=== PATIENT | male | born 1945 | race Caucasian/White ===

== ENCOUNTER 2021-12-10 18:33 | Inpatient (IN) | payer BC, MEDICARE, OTHER ==
[~2021-12-10] VITALS: Ht 180.3 cm; Wt 97.4 kg
[2021-12-10 19:21] LABS: BASOPHILS % (AUTO) 0.4 % (0.0-5.0); EOSINOPHILS % (AUTO) 0.4 % (0.0-8.0); HEMATOCRIT 37.3 % (42-54); MEAN CORPUSCULAR HEMOGLOBIN 29.3 pg (27.0-33.0); MEAN CORPUSCULAR HGB CONC 33.8 g/dL (32.0-36.0); MEAN CORPUSCULAR VOLUME 86.7 fL (79-99); MONOCYTES % (AUTO) 10.5 % (3.0-13.0); NEUTROPHILS % (AUTO) 72.3 % (40.0-77.0); PLATELET COUNT (AUTO) 282 K/uL (130-400); RED CELL DISTRIBUTION WIDTH 12.3 % (11.0-15.5); WHITE BLOOD COUNT (AUTO) 11.3 K/uL (4.8-10.8)
[2021-12-10] MEDS ORDERED: 0.9%NACL 1000ML 1,000 ML IV ONE (19:30)
[2021-12-10] MEDS ORDERED: ACETAMINOPHEN 500 MG TABLET PO ONE (19:30)
[2021-12-10] MEDS ORDERED: VANCOMYCIN 1G VIAL IVPB ONE (19:30)
[2021-12-10 19:45] LABS: INR 1.12 (0.85-1.15); PROTHROMBIN TIME 12.1 SEC (9.6-11.6)
[2021-12-10] MEDS ORDERED: VANCOMYCIN 750MG VIAL ONE (19:45)
[2021-12-10 19:47] LABS: PARTIAL THROMBOPLASTIN TIME 30.5 SEC (26.3-35.5)
[2021-12-10 19:49] LABS: CREATININE 1.5 mg/dL (0.5-1.5); POTASSIUM 5.1 mmol/L (3.5-5.1)
[2021-12-10 20:03] LABS: ALBUMIN 3.5 g/dL (3.5-5.0)
[2021-12-10] MEDS: ZOSYN 3.375GM +NS 50ML IV SCH (20:09)
[2021-12-10 20:15] LABS: APPEARANCE,URINE CLEAR (CLEAR); BILIRUBIN,URINE NEGATIVE (NEGATIVE); COLOR,URINE YELLOW (YELLOW); GLUCOSE, URINE (UA) NEGATIVE (NEGATIVE); KETONES,URINE 5 mg/dL (NEGATIVE); LEUKOCYTE ESTERASE ,URINE NEGATIVE (NEGATIVE); NITRATE,URINE NEGATIVE (NEGATIVE); OCCULT BLOOD,URINE NEGATIVE (NEGATIVE); PH,URINE 5.5 (5.0-8.0); PROTEIN,URINE NEGATIVE (NEGATIVE); UROBILINOGEN,URINE 0.2 mg/dL (0.2-1.0)
[2021-12-10] MEDS ORDERED: ONDANSETRON 4MG INJ IV PRN (21:00)
[2021-12-10] MEDS ORDERED: LACTULOSE 20 GM/30 ML UDCUP PO PRN (21:00)
[2021-12-10] MEDS ORDERED: COMPOUND IV REFRIGERATED 1 EACH IVSOLN MISC PRN (21:00)
[2021-12-10] MEDS ORDERED: ACETAMINOPHEN 325 MG TAB PO PRN ×2 (21:00)
[2021-12-10] MEDS ORDERED: VANCOMYCIN PROTOCOL PER PHARMACY IV PRN (21:00)
[2021-12-10] MEDS: INSULIN HUMULIN R 100 UNIT/ML 3ML SQ SCH (21:00)
[2021-12-10] MEDS: 0.9%NACL 1000ML 1,000 ML IV SCH (23:24)
[2021-12-10] MEDS: CEFEPIME HCL 2 GM VIAL IVP SCH (23:24)
[2021-12-11 01:00] VITALS: BP 136/45
[2021-12-11 04:45] VITALS: BP 128/56
[2021-12-11] MEDS: CEFEPIME HCL 2 GM VIAL IVP SCH ×3 (04:53→22:42)
[2021-12-11 05:43] LABS: BASOPHILS % (AUTO) 0.3 % (0.0-5.0); EOSINOPHILS % (AUTO) 1.3 % (0.0-8.0); HEMATOCRIT 35.2 % (42-54); LYMPHOCYTES % (AUTO) 22.2 % (21.0-51.0); MEAN CORPUSCULAR HEMOGLOBIN 29.4 pg (27.0-33.0); MEAN CORPUSCULAR VOLUME 89.1 fL (79-99); MONOCYTES % (AUTO) 11.9 % (3.0-13.0); PLATELET COUNT (AUTO) 233 K/uL (130-400); RED BLOOD CELL COUNT(AUTO) 3.95 MIL/uL (4.50-6.20); RED CELL DISTRIBUTION WIDTH 12.4 % (11.0-15.5); WHITE BLOOD COUNT (AUTO) 8.9 K/uL (4.8-10.8)
[2021-12-11 06:01] LABS: CREATININE 1.3 mg/dL (0.5-1.5); POTASSIUM 4.1 mmol/L (3.5-5.1); TOTAL PROTEIN, SERUM 7.2 g/dL (6.0-8.3)
[2021-12-11] MEDS: INSULIN HUMULIN R 100 UNIT/ML 3ML SQ SCH ×4 (07:03→21:00)
[2021-12-11 08:00] VITALS: BP 188/73
[2021-12-11] MEDS: FAMOTIDINE 20MG TAB PO SCH (10:21)
[2021-12-11 12:00] VITALS: BP 148/61
[2021-12-11] MEDS ORDERED: METOPROLOL TARTRATE 1 MG/ML 5ML VIAL IV PRN (12:00)
[2021-12-11] MEDS ORDERED: HYDRALAZINE HCL 10 MG TABLET PO PRN (12:00)
[2021-12-11] MEDS: 0.9%NACL 1000ML 1,000 ML IV SCH ×2 (12:54→18:25)
[2021-12-11] MEDS: VANCOMYCIN 1.25GM/NS 250ML IVPB SCH ×2 (13:00)
[2021-12-11 16:00] VITALS: BP 130/61
[2021-12-11 20:39] VITALS: BP 160/66
[2021-12-11] MEDS: ZOSYN 3.375GM +NS 50ML IV SCH (22:42)
[2021-12-12 00:11] VITALS: BP 154/61
[2021-12-12 04:24] VITALS: BP 159/69
[2021-12-12] MEDS: CEFEPIME HCL 2 GM VIAL IVP SCH ×3 (04:44→21:22)
[2021-12-12 05:06] LABS: HEMATOCRIT 31.4 % (42-54); MEAN CORPUSCULAR HEMOGLOBIN 29.1 pg (27.0-33.0); MEAN CORPUSCULAR HGB CONC 32.8 g/dL (32.0-36.0); MEAN CORPUSCULAR VOLUME 88.7 fL (79-99); RED BLOOD CELL COUNT(AUTO) 3.54 MIL/uL (4.50-6.20); RED CELL DISTRIBUTION WIDTH 12.4 % (11.0-15.5); WHITE BLOOD COUNT (AUTO) 9.4 K/uL (4.8-10.8)
[2021-12-12] MEDS: 0.9%NACL 1000ML 1,000 ML IV SCH ×3 (05:15→23:00)
[2021-12-12 05:25] LABS: CREATININE 1.1 mg/dL (0.5-1.5); POTASSIUM 4.1 mmol/L (3.5-5.1)
[2021-12-12] MEDS: INSULIN HUMULIN R 100 UNIT/ML 3ML SQ SCH ×4 (06:18→21:11)
[2021-12-12 07:00] VITALS: BP 161/58
[2021-12-12] MEDS: FAMOTIDINE 20MG TAB PO SCH (08:57)
[2021-12-12 11:00] VITALS: BP 160/62
[2021-12-12] MEDS ORDERED: ASPIRIN 81 MG EC TAB PO ONE (11:30)
[2021-12-12] MEDS: VANCOMYCIN 1.25GM/NS 250ML IVPB SCH ×2 (12:27)
[2021-12-12] MEDS ORDERED: IOHEXOL 350 MG/ML 100ML INFUS..BTL IV ONE (14:36)
[2021-12-12] MEDS ORDERED: IOHEXOL-350 50ML VIAL IV ONE (14:37)
[2021-12-12 15:00] VITALS: BP 173/66
[2021-12-12] MEDS ORDERED: CETI10TA57 PO (20:19)
[2021-12-12] MEDS ORDERED: VIT-6 PO (20:19)
[2021-12-12] MEDS ORDERED: BUPR-49 PO (20:19)
[2021-12-12] MEDS ORDERED: HYDR12.54 PO (20:19)
[2021-12-12] MEDS ORDERED: ASPI-891 PO (20:19)
[2021-12-12] MEDS ORDERED: [UNRECOGNIZED DRUG - OTHER] (20:19)
[2021-12-12] MEDS ORDERED: LISI20TA24 PO (20:19)
[2021-12-12] MEDS ORDERED: METF-446 PO (20:19)
[2021-12-12] MEDS ORDERED: NIFE30TA98 PO (20:19)
[2021-12-12] MEDS ORDERED: INSU100I24 SQ (20:19)
[2021-12-12] MEDS: ATORVASTATIN 40 MG TABLET PO SCH (21:08)
[2021-12-12] MEDS: ZOSYN 3.375GM +NS 50ML IV SCH (21:08)
[2021-12-12 21:19] VITALS: BP 184/70
[2021-12-13] VITALS (7 sets, daily range): BP systolic 121–169; BP diastolic 55–65
[2021-12-13] MEDS: CEFEPIME HCL 2 GM VIAL IVP SCH ×3 (04:57→20:39)
[2021-12-13] MEDS: 0.9%NACL 1000ML 1,000 ML IV SCH ×2 (05:32→16:52)
[2021-12-13] MEDS: INSULIN HUMULIN R 100 UNIT/ML 3ML SQ SCH ×4 (06:27→20:38)
[2021-12-13 08:21] LABS: MEAN CORPUSCULAR HEMOGLOBIN 29.1 pg (27.0-33.0); MEAN CORPUSCULAR HGB CONC 33.1 g/dL (32.0-36.0); MEAN CORPUSCULAR VOLUME 87.9 fL (79-99); RED BLOOD CELL COUNT(AUTO) 3.98 MIL/uL (4.50-6.20); RED CELL DISTRIBUTION WIDTH 12.3 % (11.0-15.5); WHITE BLOOD COUNT (AUTO) 7.7 K/uL (4.8-10.8)
[2021-12-13 08:40] LABS: CREATININE 1.1 mg/dL (0.5-1.5); POTASSIUM 4.2 mmol/L (3.5-5.1)
[2021-12-13] MEDS: CETIRIZINE HCL 5 MG TABLET PO SCH (08:52)
[2021-12-13] MEDS: LISINOPRIL 20 MG TABLET PO SCH (08:52)
[2021-12-13] MEDS: ASPIRIN 81 MG EC TAB PO SCH (08:53)
[2021-12-13] MEDS: HYDROCHLOROTHIAZIDE 25 MG TABLET PO SCH (08:53)
[2021-12-13] MEDS: FAMOTIDINE 20MG TAB PO SCH (08:53)
[2021-12-13] MEDS: PYRIDOXINE PO SCH (08:59)
[2021-12-13] MEDS: CYANOCOBALAMIN PO SCH (08:59)
[2021-12-13] MEDS: RIBOFLAVIN PO SCH (08:59)
[2021-12-13] MEDS: **HM** BUPROPION XL 150MG PO SCH (08:59)
[2021-12-13] MEDS ORDERED: NIFEDIPINE ER 30 MG TAB PO SCH (09:00)
[2021-12-13] MEDS: VANCOMYCIN 1.25GM/NS 250ML IVPB SCH ×2 (13:17)
[2021-12-13] MEDS: ZOSYN 3.375GM +NS 50ML IV SCH (20:28)
[2021-12-13] MEDS: NIFEDIPINE 10 MG CAP PO SCH (20:38)
[2021-12-13] MEDS: ATORVASTATIN 40 MG TABLET PO SCH (20:39)
[2021-12-14] MEDS: VANCOMYCIN 1.25GM/NS 250ML IVPB SCH ×4 (01:54→12:24)
[2021-12-14 03:20] VITALS: BP 154/63
[2021-12-14] MEDS: CEFEPIME HCL 2 GM VIAL IVP SCH ×3 (05:25→20:19)
[2021-12-14] MEDS: 0.9%NACL 1000ML 1,000 ML IV SCH ×2 (05:26→15:00)
[2021-12-14] MEDS: INSULIN HUMULIN R 100 UNIT/ML 3ML SQ SCH ×4 (06:11→21:00)
[2021-12-14 06:40] LABS: HEMATOCRIT 33.8 % (42-54); MEAN CORPUSCULAR HEMOGLOBIN 28.9 pg (27.0-33.0); MEAN CORPUSCULAR HGB CONC 33.1 g/dL (32.0-36.0); MEAN CORPUSCULAR VOLUME 87.3 fL (79-99); RED BLOOD CELL COUNT(AUTO) 3.87 MIL/uL (4.50-6.20); RED CELL DISTRIBUTION WIDTH 12.3 % (11.0-15.5); WHITE BLOOD COUNT (AUTO) 7.5 K/uL (4.8-10.8)
[2021-12-14 06:54] LABS: ALBUMIN 2.6 g/dL (3.5-5.0); CREATININE 1.1 mg/dL (0.5-1.5); POTASSIUM 4.3 mmol/L (3.5-5.1)
[2021-12-14 07:00] VITALS: BP 157/63
[2021-12-14] MEDS: CYANOCOBALAMIN PO SCH (09:00)
[2021-12-14] MEDS: **HM** BUPROPION XL 150MG PO SCH (09:00)
[2021-12-14] MEDS: RIBOFLAVIN PO SCH (09:00)
[2021-12-14] MEDS: PYRIDOXINE PO SCH (09:00)
[2021-12-14] MEDS: ASPIRIN 81 MG EC TAB PO SCH (10:17)
[2021-12-14] MEDS: FAMOTIDINE 20MG TAB PO SCH (10:17)
[2021-12-14] MEDS: CETIRIZINE HCL 5 MG TABLET PO SCH (10:17)
[2021-12-14] MEDS: LISINOPRIL 20 MG TABLET PO SCH (10:17)
[2021-12-14] MEDS: HYDROCHLOROTHIAZIDE 25 MG TABLET PO SCH (10:17)
[2021-12-14] MEDS: NIFEDIPINE 10 MG CAP PO SCH ×3 (10:21→20:19)
[2021-12-14 11:00] VITALS: BP 171/67
[2021-12-14 15:00] VITALS: BP 151/52
[2021-12-14 19:20] VITALS: BP 159/136
[2021-12-14] MEDS: ATORVASTATIN 40 MG TABLET PO SCH (20:19)
[2021-12-14] MEDS: ZOSYN 3.375GM +NS 50ML IV SCH (20:19)
[2021-12-14 23:33] VITALS: BP 136/49
[2021-12-15] VITALS (11 sets, daily range): BP systolic 137–187; BP diastolic 52–77
[2021-12-15] MEDS: 0.9%NACL 1000ML 1,000 ML IV SCH ×2 (01:00→21:47)
[2021-12-15] MEDS: VANCOMYCIN 1.25GM/NS 250ML IVPB SCH ×4 (01:24→13:00)
[2021-12-15 05:27] LABS: HEMATOCRIT 34.6 % (42-54); MEAN CORPUSCULAR HEMOGLOBIN 28.6 pg (27.0-33.0); MEAN CORPUSCULAR HGB CONC 33.5 g/dL (32.0-36.0); MEAN CORPUSCULAR VOLUME 85.4 fL (79-99); RED BLOOD CELL COUNT(AUTO) 4.05 MIL/uL (4.50-6.20); RED CELL DISTRIBUTION WIDTH 12.2 % (11.0-15.5); WHITE BLOOD COUNT (AUTO) 6.8 K/uL (4.8-10.8)
[2021-12-15 05:39] LABS: INR 1.24 (0.85-1.15); PROTHROMBIN TIME 13.4 SEC (9.6-11.6)
[2021-12-15 05:40] LABS: PARTIAL THROMBOPLASTIN TIME 29.1 SEC (26.3-35.5); POTASSIUM 3.6 mmol/L (3.5-5.1)
[2021-12-15] MEDS: CEFEPIME HCL 2 GM VIAL IVP SCH ×3 (05:40→21:47)
[2021-12-15] MEDS: INSULIN HUMULIN R 100 UNIT/ML 3ML SQ SCH ×4 (07:17→22:20)
[2021-12-15] MEDS: RIBOFLAVIN PO SCH (09:00)
[2021-12-15] MEDS: **HM** BUPROPION XL 150MG PO SCH (09:00)
[2021-12-15] MEDS: NIFEDIPINE 10 MG CAP PO SCH ×3 (09:00→21:49)
[2021-12-15] MEDS: HYDROCHLOROTHIAZIDE 25 MG TABLET PO SCH (09:00)
[2021-12-15] MEDS: FAMOTIDINE 20MG TAB PO SCH (09:00)
[2021-12-15] MEDS: CETIRIZINE HCL 5 MG TABLET PO SCH (09:00)
[2021-12-15] MEDS: PYRIDOXINE PO SCH (09:00)
[2021-12-15] MEDS: ASPIRIN 81 MG EC TAB PO SCH (09:00)
[2021-12-15] MEDS: LISINOPRIL 20 MG TABLET PO SCH (09:00)
[2021-12-15] MEDS: CYANOCOBALAMIN PO SCH (09:00)
[2021-12-15] MEDS ORDERED: LIDOCAINE HCL 400MG/20ML VIAL ONE (17:07)
[2021-12-15] MEDS ORDERED: NITROGLYCERIN 50MG VIAL ONE (17:07)
[2021-12-15] MEDS ORDERED: IODIXANOL 320 MG/ML 100 ML VIAL ONE (17:07)
[2021-12-15] MEDS ORDERED: HEPARIN 10,000 UNIT/10ML (1,000 UNIT/ML) VIAL ONE ×2 (17:08→19:28)
[2021-12-15] MEDS ORDERED: MIDAZOLAM HCL 1 MG/ML 2ML VIAL ONE (18:00)
[2021-12-15] MEDS ORDERED: FENTANYL CITRATE PF 50 MCG/1 ML 2ML VIAL ONE (18:00)
[2021-12-15] MEDS ORDERED: HYDRALAZINE 20MG/ML VIAL ONE ×2 (18:06→18:23)
[2021-12-15] MEDS ORDERED: NICARDIPINE 25MG INJ IV ONE (18:54)
[2021-12-15] MEDS ORDERED: ASPIRIN 325MG EC TAB PO ONE (18:56)
[2021-12-15] MEDS ORDERED: CLOPIDOGREL 300MG TAB ONE (18:56)
[2021-12-15] MEDS: ZOSYN 3.375GM +NS 50ML IV SCH (19:30)
[2021-12-15] MEDS ORDERED: LABETALOL 20MG SYG IV ONE (19:56)
[2021-12-15] MEDS ORDERED: 0.9%NACL 1000ML 1,000 ML IV SCH (20:30)
[2021-12-15] MEDS ORDERED: DEXTROSE 50%-WATER 50 ML DISP.SYRIN IV PRN (20:30)
[2021-12-15] MEDS ORDERED: GLUCAGON 1MG KIT 1 MG ML IM PRN (20:30)
[2021-12-15] MEDS: ATORVASTATIN 40 MG TABLET PO SCH (21:48)
[2021-12-16] VITALS (22 sets, daily range): BP systolic 138–184; BP diastolic 58–84
[2021-12-16] MEDS: VANCOMYCIN 1.25GM/NS 250ML IVPB SCH ×4 (00:51→14:32)
[2021-12-16] MEDS: CEFEPIME HCL 2 GM VIAL IVP SCH ×3 (04:31→23:50)
[2021-12-16 05:05] LABS: HEMATOCRIT 34.3 % (42-54); MEAN CORPUSCULAR HEMOGLOBIN 28.8 pg (27.0-33.0); MEAN CORPUSCULAR HGB CONC 33.5 g/dL (32.0-36.0); RED BLOOD CELL COUNT(AUTO) 3.99 MIL/uL (4.50-6.20); RED CELL DISTRIBUTION WIDTH 12.2 % (11.0-15.5); WHITE BLOOD COUNT (AUTO) 8.9 K/uL (4.8-10.8)
[2021-12-16 05:21] LABS: CRP QUANTITATIVE 19.8 mg/L (0.00-9.0); POTASSIUM 3.4 mmol/L (3.5-5.1)
[2021-12-16 05:38] LABS: HEMOGLOBIN A1C 9.8 % (4.0-6.0)
[2021-12-16] MEDS: INSULIN HUMULIN R 100 UNIT/ML 3ML SQ SCH ×4 (06:14→21:00)
[2021-12-16] MEDS: 0.9%NACL 1000ML 1,000 ML IV SCH ×2 (06:44→17:00)
[2021-12-16] MEDS: CETIRIZINE HCL 5 MG TABLET PO SCH (08:59)
[2021-12-16] MEDS: LISINOPRIL 20 MG TABLET PO SCH (08:59)
[2021-12-16] MEDS: **HM** BUPROPION XL 150MG PO SCH (09:00)
[2021-12-16] MEDS: RIBOFLAVIN PO SCH (09:00)
[2021-12-16] MEDS: ASPIRIN 81 MG EC TAB PO SCH (09:00)
[2021-12-16] MEDS: CLOPIDOGREL 75MG TAB PO SCH (09:00)
[2021-12-16] MEDS: CYANOCOBALAMIN PO SCH (09:00)
[2021-12-16] MEDS: PYRIDOXINE PO SCH (09:00)
[2021-12-16] MEDS: NIFEDIPINE 10 MG CAP PO SCH ×3 (09:00→23:49)
[2021-12-16] MEDS: HYDROCHLOROTHIAZIDE 25 MG TABLET PO SCH (09:00)
[2021-12-16] MEDS: FAMOTIDINE 20MG TAB PO SCH (09:00)
[2021-12-16] MEDS: ZOSYN 3.375GM +NS 50ML IV SCH (19:30)
[2021-12-16] MEDS ORDERED: BUPIVACAINE/PF 0.5% 10ML VIAL ONE (20:44)
[2021-12-16] MEDS ORDERED: PROPOFOL 10 MG/ML 20ML VIAL IV ONE (20:53)
[2021-12-16] MEDS ORDERED: FENTANYL CITRATE PF 50 MCG/1 ML 2ML VIAL ONE (20:53)
[2021-12-16] MEDS ORDERED: MIDAZOLAM HCL 1 MG/ML 2ML VIAL ONE (20:54)
[2021-12-16] MEDS: ATORVASTATIN 40 MG TABLET PO SCH (23:49)
[2021-12-17] VITALS (11 sets, daily range): BP systolic 104–162; BP diastolic 48–75
[2021-12-17] MEDS: VANCOMYCIN 1.25GM/NS 250ML IVPB SCH ×2 (01:00)
[2021-12-17] MEDS: 0.9%NACL 1000ML 1,000 ML IV SCH ×2 (03:00→13:00)
[2021-12-17] MEDS: CEFEPIME HCL 2 GM VIAL IVP SCH ×2 (05:41→14:51)
[2021-12-17] MEDS: INSULIN HUMULIN R 100 UNIT/ML 3ML SQ SCH (05:57)
[2021-12-17 06:01] LABS: HEMATOCRIT 35.9 % (42-54); MEAN CORPUSCULAR HEMOGLOBIN 29.5 pg (27.0-33.0); MEAN CORPUSCULAR HGB CONC 33.7 g/dL (32.0-36.0); MEAN CORPUSCULAR VOLUME 87.6 fL (79-99); RED BLOOD CELL COUNT(AUTO) 4.1 MIL/uL (4.50-6.20); RED CELL DISTRIBUTION WIDTH 12.3 % (11.0-15.5); WHITE BLOOD COUNT (AUTO) 10.6 K/uL (4.8-10.8)
[2021-12-17 06:05] LABS: CREATININE 1.2 mg/dL (0.5-1.5); POTASSIUM 3.1 mmol/L (3.5-5.1)
[2021-12-17] MEDS: NIFEDIPINE 10 MG CAP PO SCH ×2 (08:27→14:57)
[2021-12-17] MEDS: FAMOTIDINE 20MG TAB PO SCH (08:27)
[2021-12-17] MEDS: ASPIRIN 81 MG EC TAB PO SCH (08:27)
[2021-12-17] MEDS: LISINOPRIL 20 MG TABLET PO SCH (08:28)
[2021-12-17] MEDS: HYDROCHLOROTHIAZIDE 25 MG TABLET PO SCH (08:28)
[2021-12-17] MEDS: CLOPIDOGREL 75MG TAB PO SCH (08:29)
[2021-12-17] MEDS: CETIRIZINE HCL 5 MG TABLET PO SCH (08:29)
[2021-12-17] MEDS: **HM** BUPROPION XL 150MG PO SCH (08:34)
[2021-12-17] MEDS: PYRIDOXINE PO SCH (08:34)
[2021-12-17] MEDS: CYANOCOBALAMIN PO SCH (08:34)
[2021-12-17] MEDS: RIBOFLAVIN PO SCH (08:34)
[2021-12-17] MEDS ORDERED: ATOR40TA69 PO (12:49)
[2021-12-17] MEDS ORDERED: CLOP75TA14 PO (12:49)
[2021-12-17] MEDS ORDERED: KCL 20 MEQ ERTAB PO ONE (13:00)
[2021-12-17] MEDS ORDERED: SULF1TAB42 PO (13:26)
== END 2021-12-17 18:00 | DRG 271 ==
LOC: EDH 18:33 → EDHIP 20:44 → 3AH 12-11 01:00
PROVIDERS: ADMIT Hospitalist; ATTEND Hospitalist
PROC: 047Q3ZZ Dilation of Left Anterior Tibial Artery, Percutaneous Approach (ICD-10-PCS; 2021-12-15)
PROC: 04FQ3ZZ Fragmentation of Left Anterior Tibial Artery, Percutaneous Approach (ICD-10-PCS; 2021-12-15)
PROC: 04CQ3ZZ Extirpation of Matter from Left Anterior Tibial Artery, Percutaneous Approach (ICD-10-PCS; 2021-12-15)
PROC: B41DYZZ Fluoroscopy of Aorta and Bilateral Lower Extremity Arteries using Other Contrast (ICD-10-PCS; 2021-12-15)
PROC: 0Y6Q0Z1 Detachment at Left 1st Toe, High, Open Approach (ICD-10-PCS; principal; 2021-12-16 20:50)
DX: E11.51 Type 2 diabetes mellitus with diabetic peripheral angiopathy without gangrene (principal); E87.1 Hypo-osmolality and hyponatremia; L03.116 Cellulitis of left lower limb; M86.8X7 Other osteomyelitis, ankle and foot; L97.528 Non-pressure chronic ulcer of other part of left foot with other specified severity; Z20.822 Contact with and (suspected) exposure to COVID-19; E11.69 Type 2 diabetes mellitus with other specified complication; E11.621 Type 2 diabetes mellitus with foot ulcer; I10 Essential (primary) hypertension; E87.6 Hypokalemia; E78.00 Pure hypercholesterolemia, unspecified; L03.032 Cellulitis of left toe; Z79.82 Long term (current) use of aspirin; B96.6 Bacteroides fragilis [B. fragilis] as the cause of diseases classified elsewhere
CPT/HCPCS: 36415; 73630; 73718; 75635; 75716; 80048; 80053; 80202; 81003; 82040; 82550; 82948; 83036; 83605; 83880; 84145; 84484; 85025; 85027; 85347; 85610; 85651; 85730; 86140; 87040; 87070; 87076; 87077; 87088; 87186; 87205; 87426; 93005; 93925; 93971; 97039; 99156; 99157; C1724; C1769; C1893; C1894; C9774; G0378; J0360; J0692; J1644; J1815; J2250; J2543; J2704; J3010; J3370; J3490; J7030; J7050; L3260; Q9967

== ENCOUNTER 2023-03-13 14:28 | Inpatient (IN) | payer OTHER ==
[~2023-03-13] VITALS: Ht 180.3 cm; Wt 89.0 kg
[~2023-03-13 14:28] MED LIST: ASPI-891 PO; ATOR40TA69 PO; BUPR-49 PO; CETI10TA57 PO; CLOP-31 PO; LISI20TA24 PO; NIFE-78 PO
[2023-03-13 15:51] LABS: BASOPHILS # (AUTO) 0.01 K/uL (0.00-0.20); BASOPHILS % (AUTO) 0.1 % (0.0-5.0); EOSINOPHILS # (AUTO) 0.01 K/uL (0.00-0.70); EOSINOPHILS % (AUTO) 0.1 % (0.0-8.0); HEMATOCRIT 30.3 % (42-54); IMMATURE GRANULOCYTE ABSOLUTE 0.12 K/uL (0-1); LYMPHOCYTES # (AUTO) 0.5 K/uL (1.0-4.8); LYMPHOCYTES % (AUTO) 3.4 % (21.0-51.0); MEAN CORPUSCULAR HEMOGLOBIN 29.2 pg (27.0-33.0); MEAN CORPUSCULAR HGB CONC 35.6 g/dL (32.0-36.0); MEAN CORPUSCULAR VOLUME 81.9 fL (79-99); MONOCYTES # (AUTO) 0.9 K/uL (0.1-1.0); MONOCYTES % (AUTO) 6.3 % (3.0-13.0); NEUTROPHILS # (AUTO) 13.3 K/uL (1.8-7.7); NEUTROPHILS % (AUTO) 89.3 % (40.0-77.0); PLATELET COUNT (AUTO) 234 K/uL (130-400); RED CELL DISTRIBUTION WIDTH 13.7 % (11.0-15.5); WHITE BLOOD COUNT (AUTO) 14.9 K/uL (4.8-10.8)
[2023-03-13 16:08] LABS: ALBUMIN 3.1 g/dL (3.5-5.0); BILIRUBIN,TOTAL 0.7 mg/dL (0.2-1.0); CREATININE 1.5 mg/dL (0.5-1.5); TOTAL PROTEIN, SERUM 7.4 g/dL (6.0-8.3)
[2023-03-13] MEDS ORDERED: VANCOMYCIN KIT 1 GM/250 ML IV.KIT IV ONE (17:30)
[2023-03-13] MEDS ORDERED: 0.9%NACL 1000ML 1,000 ML IV ONE (19:00)
[2023-03-13] MEDS ORDERED: POTASSIUM CHLORIDE 20MEQ/100ML 100 ML IV PRN (22:30)
[2023-03-13] MEDS ORDERED: MORPHINE 4 MG SYG IV PRN (22:30)
[2023-03-13] MEDS ORDERED: LACTATED RINGERS 1000ML 2,328 ML IV ONE (22:30)
[2023-03-13] MEDS ORDERED: ONDANSETRON 4MG INJ IV PRN (22:30)
[2023-03-13] MEDS ORDERED: ACETAMINOPHEN 325 MG TAB PO PRN ×2 (22:30)
[2023-03-13] MEDS ORDERED: MORPHINE 2 MG SYG IV PRN (22:30)
[2023-03-13] MEDS ORDERED: VANCOMYCIN PROTOCOL PER PHARMACY IV PRN (22:30)
[2023-03-13 23:00] VITALS: BP 152/70; PULSE 110; RESP 20; O2SAT 95
[2023-03-13] MEDS: 0.9%NACL 1000ML 1,000 ML IV SCH (23:28)
[2023-03-13] MEDS: CEFEPIME HCL 1 GM VIAL IVPB SCH (23:28)
[2023-03-14] VITALS (26 sets, daily range): BP systolic 135–185; BP diastolic 58–96; PULSE 78–110; RESP 12–32; TEMP 99.4; O2SAT 94–95
[2023-03-14 02:32] LABS: BASOPHILS # (AUTO) 0.01 K/uL (0.00-0.20); BASOPHILS % (AUTO) 0.1 % (0.0-5.0); HEMATOCRIT 26.4 % (42-54); IMMATURE GRANULOCYTE ABSOLUTE 0.05 K/uL (0-1); LYMPHOCYTES # (AUTO) 0.5 K/uL (1.0-4.8); LYMPHOCYTES % (AUTO) 4.5 % (21.0-51.0); MEAN CORPUSCULAR HEMOGLOBIN 29.4 pg (27.0-33.0); MEAN CORPUSCULAR VOLUME 81.7 fL (79-99); MONOCYTES # (AUTO) 0.6 K/uL (0.1-1.0); MONOCYTES % (AUTO) 5.2 % (3.0-13.0); NEUTROPHILS # (AUTO) 9.9 K/uL (1.8-7.7); NEUTROPHILS % (AUTO) 89.7 % (40.0-77.0); PLATELET COUNT (AUTO) 252 K/uL (130-400); RED BLOOD CELL COUNT(AUTO) 3.23 MIL/uL (4.50-6.20); RED CELL DISTRIBUTION WIDTH 13.8 % (11.0-15.5)
[2023-03-14 02:39] LABS: CREATININE 1.4 mg/dL (0.5-1.5); MAGNESIUM 1.7 mg/dL (1.80-2.40); PHOSPHORUS 2.7 mg/dL (2.5-4.9); POTASSIUM 3.3 mmol/L (3.5-5.1)
[2023-03-14] MEDS: INSULIN HUMULIN R 100 UNIT/ML 3ML SQ SCH ×4 (07:30→20:57)
[2023-03-14] MEDS: ASPIRIN 81 MG EC TAB PO SCH (09:24)
[2023-03-14] MEDS: HYDRALAZINE 25MG TABLET PO SCH ×3 (09:25→20:49)
[2023-03-14] MEDS: FAMOTIDINE 20MG VIAL IV SCH (09:25)
[2023-03-14] MEDS: CEFEPIME HCL 1 GM VIAL IVPB SCH ×2 (09:25→20:58)
[2023-03-14] MEDS ORDERED: POTASSIUM CHLORIDE 10% ELIXIR 20 MEQ/15 ML UDCUP PO PRN (09:30)
[2023-03-14] MEDS ORDERED: LIDOCAINE PF 100MG/5ML (2%) SYRINGE 5ML ONE (10:58)
[2023-03-14] MEDS ORDERED: FENTANYL CITRATE PF 50 MCG/1 ML 2ML VIAL ONE (10:59)
[2023-03-14] MEDS ORDERED: PROPOFOL 10 MG/ML 20ML VIAL IV ONE (10:59)
[2023-03-14] MEDS ORDERED: MIDAZOLAM HCL 1 MG/ML 2ML VIAL ONE (10:59)
[2023-03-14] MEDS ORDERED: BUPIVACAINE/PF 0.5% 10ML VIAL ONE (11:26)
[2023-03-14] MEDS ORDERED: LIDOCAINE HCL-MPF 2% 5ML VIAL ONE (11:26)
[2023-03-14] MEDS ORDERED: LIDOCAINE HCL MPF 1% 5ML VIAL ONE (11:41)
[2023-03-14] MEDS ORDERED: ONDANSETRON 4MG INJ ONE (11:50)
[2023-03-14] MEDS ORDERED: LIDOCAINE 2%-EPI 1:200,000 20 ML VIAL IJ ONE (12:07)
[2023-03-14] MEDS ORDERED: BUPIVACAINE/PF 0.5% 10ML VIAL IJ ONE (12:07)
[2023-03-14] MEDS: 0.9%NACL 1000ML 1,000 ML IV SCH (14:34)
[2023-03-14] MEDS: KCL 20 MEQ ERTAB PO PRN ×2 (14:43→16:50)
[2023-03-14] MEDS: VANCOMYCIN 1.25 GM/250 ML BAG 250 ML IV SCH (17:27)
[2023-03-14] MEDS: ATORVASTATIN 40 MG TABLET PO SCH (20:49)
[2023-03-15] VITALS (7 sets, daily range): BP systolic 138–170; BP diastolic 60–88; PULSE 83–92; RESP 18–22; O2SAT 95–96
[2023-03-15] MEDS: 0.9%NACL 1000ML 1,000 ML IV SCH ×2 (02:24→04:23)
[2023-03-15 04:16] LABS: BASOPHILS # (AUTO) 0.01 K/uL (0.00-0.20); BASOPHILS % (AUTO) 0.1 % (0.0-5.0); HEMATOCRIT 27.6 % (42-54); IMMATURE GRANULOCYTE ABSOLUTE 0.05 K/uL (0-1); LYMPHOCYTES # (AUTO) 0.6 K/uL (1.0-4.8); LYMPHOCYTES % (AUTO) 7.7 % (21.0-51.0); MEAN CORPUSCULAR HEMOGLOBIN 28.4 pg (27.0-33.0); MEAN CORPUSCULAR HGB CONC 34.1 g/dL (32.0-36.0); MEAN CORPUSCULAR VOLUME 83.4 fL (79-99); MONOCYTES # (AUTO) 0.6 K/uL (0.1-1.0); MONOCYTES % (AUTO) 8.1 % (3.0-13.0); NEUTROPHILS % (AUTO) 83.4 % (40.0-77.0); PLATELET COUNT (AUTO) 191 K/uL (130-400); RED BLOOD CELL COUNT(AUTO) 3.31 MIL/uL (4.50-6.20); RED CELL DISTRIBUTION WIDTH 14.3 % (11.0-15.5); WHITE BLOOD COUNT (AUTO) 7.2 K/uL (4.8-10.8)
[2023-03-15 04:29] LABS: ALBUMIN 2.2 g/dL (3.5-5.0); BILIRUBIN,TOTAL 0.5 mg/dL (0.2-1.0); CREATININE 1.1 mg/dL (0.5-1.5); MAGNESIUM 1.9 mg/dL (1.80-2.40); POTASSIUM 3.8 mmol/L (3.5-5.1); TOTAL PROTEIN, SERUM 5.7 g/dL (6.0-8.3)
[2023-03-15] MEDS: MAGNESIUM 2GM PREMIX 50ML 50 ML IV PRN (05:08)
[2023-03-15] MEDS: KCL 20 MEQ ERTAB PO PRN (05:09)
[2023-03-15] MEDS: INSULIN HUMULIN R 100 UNIT/ML 3ML SQ SCH ×4 (05:28→21:12)
[2023-03-15] MEDS ORDERED: HYDRALAZINE 20MG/ML VIAL IV PRN (10:30)
[2023-03-15] MEDS: FAMOTIDINE 20MG VIAL IV SCH (12:02)
[2023-03-15] MEDS: HYDRALAZINE 25MG TABLET PO SCH ×3 (12:02→20:31)
[2023-03-15] MEDS: ASPIRIN 81 MG EC TAB PO SCH (12:02)
[2023-03-15] MEDS: CEFEPIME HCL 1 GM VIAL IVPB SCH ×2 (12:02→22:16)
[2023-03-15] MEDS: VANCOMYCIN 1.25 GM/250 ML BAG 250 ML IV SCH (17:48)
[2023-03-15] MEDS: ATORVASTATIN 40 MG TABLET PO SCH (20:31)
[2023-03-16] VITALS (10 sets, daily range): BP systolic 127–174; BP diastolic 61–99; PULSE 78–98; RESP 12–20; O2SAT 93
[2023-03-16] MEDS ORDERED: INSU100I24 SQ (01:56)
[2023-03-16] MEDS ORDERED: ERYT1OIN7 OU (01:56)
[2023-03-16] MEDS: INSULIN HUMULIN R 100 UNIT/ML 3ML SQ SCH ×4 (05:36→19:57)
[2023-03-16] MEDS ORDERED: VANCOMYCIN 750MG VIAL IVPB SCH (06:00)
[2023-03-16 06:23] LABS: MEAN CORPUSCULAR HEMOGLOBIN 28.3 pg (27.0-33.0); MEAN CORPUSCULAR HGB CONC 33.2 g/dL (32.0-36.0); MEAN CORPUSCULAR VOLUME 85.1 fL (79-99); RED BLOOD CELL COUNT(AUTO) 3.29 MIL/uL (4.50-6.20); RED CELL DISTRIBUTION WIDTH 14.6 % (11.0-15.5); WHITE BLOOD COUNT (AUTO) 7.8 K/uL (4.8-10.8)
[2023-03-16 06:42] LABS: ALBUMIN 2.1 g/dL (3.5-5.0); BILIRUBIN,TOTAL 0.5 mg/dL (0.2-1.0); CREATININE 0.9 mg/dL (0.5-1.5); MAGNESIUM 1.7 mg/dL (1.80-2.40); POTASSIUM 3.4 mmol/L (3.5-5.1); TOTAL PROTEIN, SERUM 5.7 g/dL (6.0-8.3)
[2023-03-16 06:44] LABS: % IRON SATURATION 5.1 % (30-44)
[2023-03-16] MEDS: KCL 20 MEQ ERTAB PO PRN (06:54)
[2023-03-16] MEDS: FAMOTIDINE 20MG VIAL IV SCH (09:23)
[2023-03-16] MEDS: CEFEPIME HCL 1 GM VIAL IVPB SCH (09:24)
[2023-03-16] MEDS: ASPIRIN 81 MG EC TAB PO SCH (09:24)
[2023-03-16] MEDS: HYDRALAZINE 25MG TABLET PO SCH ×3 (09:24→19:48)
[2023-03-16] MEDS: MAGNESIUM 2GM PREMIX 50ML 50 ML IV PRN (11:48)
[2023-03-16] MEDS ORDERED: KCL 20 MEQ ERTAB PO ONE (12:00)
[2023-03-16] MEDS ORDERED: MAGNESIUM 2GM PREMIX 50ML 50 ML IV SCH (12:00)
[2023-03-16] MEDS ORDERED: HYDRALAZINE 20MG/ML VIAL IV PRN (12:00)
[2023-03-16] MEDS: LEVOFLOXACIN 500 MG/D5W 100 ML 100 ML IV SCH (13:23)
[2023-03-16] MEDS: CEFAZOLIN SODIUM 2 GM VIAL IVPB SCH ×2 (13:23→19:48)
[2023-03-16] MEDS: ATORVASTATIN 40 MG TABLET PO SCH (19:47)
[2023-03-16] MEDS ORDERED: IRON SUCROSE COMPLEX 300 MG in 0.9% NACL 250ML 250 ML IV ONE (21:00)
[2023-03-17 02:10] LABS: APPEARANCE,URINE CLEAR (CLEAR); BILIRUBIN,URINE NEGATIVE (NEGATIVE); COLOR,URINE YELLOW (YELLOW); GLUCOSE, URINE (UA) NEGATIVE (NEGATIVE); KETONES,URINE NEGATIVE (NEGATIVE); LEUKOCYTE ESTERASE ,URINE NEGATIVE Leu/uL (NEGATIVE); NITRATE,URINE NEGATIVE (NEGATIVE); PH,URINE 5.5 (5.0-8.0); PROTEIN,URINE 30 mg/dL (NEGATIVE); UROBILINOGEN,URINE 0.2 mg/dL (0.2-1.0)
[2023-03-17 02:13] LABS: CREATININE,URINE RANDOM 67 mg/dL (30-135); SODIUM,URINE RANDOM 34 mmol/l (40-220)
[2023-03-17 02:17] LABS: ADD UA MICROSCOPIC YES
[2023-03-17 02:22] LABS: BACTERIA,URINE RARE /HPF (None Seen); MUCUS,URINE RARE LPF (None Seen); WBC,URINE 0-1 /HPF (0-1)
[2023-03-17 03:00] VITALS: BP 148/65; PULSE 88; RESP 16
[2023-03-17] MEDS: CEFAZOLIN SODIUM 2 GM VIAL IVPB SCH ×2 (04:31→13:09)
[2023-03-17] MEDS: INSULIN HUMULIN R 100 UNIT/ML 3ML SQ SCH ×3 (05:13→16:30)
[2023-03-17 05:34] LABS: HEMATOCRIT 28.5 % (42-54); MEAN CORPUSCULAR HEMOGLOBIN 28.3 pg (27.0-33.0); MEAN CORPUSCULAR VOLUME 85.8 fL (79-99); RED BLOOD CELL COUNT(AUTO) 3.32 MIL/uL (4.50-6.20); RED CELL DISTRIBUTION WIDTH 14.6 % (11.0-15.5); WHITE BLOOD COUNT (AUTO) 6.9 K/uL (4.8-10.8)
[2023-03-17 06:19] LABS: BILIRUBIN,TOTAL 0.4 mg/dL (0.2-1.0); MAGNESIUM 1.7 mg/dL (1.80-2.40); POTASSIUM 3.8 mmol/L (3.5-5.1); TOTAL PROTEIN, SERUM 5.7 g/dL (6.0-8.3)
[2023-03-17 08:00] VITALS: BP 100/57; PULSE 76; RESP 20; O2SAT 98
[2023-03-17] MEDS ORDERED: MAGNESIUM 2GM PREMIX 50ML 50 ML IV SCH (08:00)
[2023-03-17] MEDS: FAMOTIDINE 20MG VIAL IV SCH (08:50)
[2023-03-17] MEDS: HYDRALAZINE 25MG TABLET PO SCH ×2 (08:51→14:14)
[2023-03-17] MEDS: ASPIRIN 81 MG EC TAB PO SCH (08:51)
[2023-03-17] MEDS ORDERED: AMLODIPINE 5 MG TAB PO SCH (09:00)
[2023-03-17 12:00] VITALS: BP 125/70; PULSE 67; RESP 18
[2023-03-17] MEDS: LEVOFLOXACIN 500 MG/D5W 100 ML 100 ML IV SCH (13:09)
[2023-03-17 16:00] VITALS: BP 126/74; PULSE 84; RESP 20
== END 2023-03-17 18:35 | DRG 853 ==
LOC: EDH 14:28 → EDHIP 19:13 → 2CH 03-14 00:53 → 2AH 03-14 17:29 → 3AH 03-16 01:16
PROVIDERS: ADMIT Internal Medicine; ATTEND Internal Medicine
PROC: 0QBN0ZZ Excision of Right Metatarsal, Open Approach (ICD-10-PCS; 2023-03-14)
PROC: 0QBQ0ZZ Excision of Right Toe Phalanx, Open Approach (ICD-10-PCS; principal; 2023-03-14 12:00)
DX: A41.9 Sepsis, unspecified organism (principal); G93.41 Metabolic encephalopathy; M72.6 Necrotizing fasciitis; E87.1 Hypo-osmolality and hyponatremia; E11.52 Type 2 diabetes mellitus with diabetic peripheral angiopathy with gangrene; L03.115 Cellulitis of right lower limb; M00.871 Arthritis due to other bacteria, right ankle and foot; N17.9 Acute kidney failure, unspecified; M86.8X8 Other osteomyelitis, other site; B96.89 Other specified bacterial agents as the cause of diseases classified elsewhere; E11.69 Type 2 diabetes mellitus with other specified complication; E11.621 Type 2 diabetes mellitus with foot ulcer; L97.519 Non-pressure chronic ulcer of other part of right foot with unspecified severity; E11.65 Type 2 diabetes mellitus with hyperglycemia; E11.622 Type 2 diabetes mellitus with other skin ulcer; D64.9 Anemia, unspecified; E11.22 Type 2 diabetes mellitus with diabetic chronic kidney disease; E11.51 Type 2 diabetes mellitus with diabetic peripheral angiopathy without gangrene; E11.628 Type 2 diabetes mellitus with other skin complications; E66.01 Morbid (severe) obesity due to excess calories; E78.00 Pure hypercholesterolemia, unspecified; I13.10 Hypertensive heart and chronic kidney disease without heart failure, with stage 1 through stage 4 chronic kidney disease, or unspecified chronic kidney disease; M19.072 Primary osteoarthritis, left ankle and foot; M47.812 Spondylosis without myelopathy or radiculopathy, cervical region; N18.9 Chronic kidney disease, unspecified; L03.031 Cellulitis of right toe; Z83.3 Family history of diabetes mellitus; Z79.899 Other long term (current) drug therapy; Z79.84 Long term (current) use of oral hypoglycemic drugs; Z68.27 Body mass index [BMI] 27.0-27.9, adult
CPT/HCPCS: 36415; 70450; 71045; 72125; 73630; 73718; 80048; 80053; 80202; 81001; 82570; 82948; 83036; 83540; 83550; 83605; 83735; 84100; 84145; 84300; 84484; 85025; 85027; 86850; 86900; 86901; 87040; 87070; 87076; 87077; 87186; 87205; 88304; 88311; 92610; 93005; 93306; 93356; 93925; 93970; G0378; J0360; J0692; J1756; J1815; J1956; J2001; J2250; J2405; J2704; J3010; J3370; J3475; J3490; J7030; J7050; J7120; 3370; A4222; A4223; A4649; A4930; A6446; C1729; J0665; J0690

== ENCOUNTER 2023-03-24 15:26 | Emergency (ER) | payer OTHER ==
[~2023-03-24 15:26] MED LIST changes: -ASPI-891 PO; -ATOR40TA69 PO; -BUPR-49 PO; -CLOP-31 PO; -LISI20TA24 PO; -NIFE-78 PO
== END 2023-03-24 17:30 | disposition left against medical advice (07) ==
LOC: EDH 15:26
DX: T14.8XXA Other injury of unspecified body region, initial encounter (principal); Z53.21 Procedure and treatment not carried out due to patient leaving prior to being seen by health care provider

== ENCOUNTER 2023-04-24 10:58 | Inpatient (IN) | payer OTHER ==
[~2023-04-24] VITALS: Ht 180.3 cm; Wt 88.4 kg
[2023-04-24 12:12] LABS: HEMATOCRIT 25.9 % (42-54); MEAN CORPUSCULAR HEMOGLOBIN 28.5 pg (27.0-33.0); MEAN CORPUSCULAR HGB CONC 33.6 g/dL (32.0-36.0); MEAN CORPUSCULAR VOLUME 84.9 fL (79-99); RED BLOOD CELL COUNT(AUTO) 3.05 MIL/uL (4.50-6.20); RED CELL DISTRIBUTION WIDTH 14.4 % (11.0-15.5); WHITE BLOOD COUNT (AUTO) 8.7 K/uL (4.8-10.8)
[2023-04-24 12:24] LABS: CREATININE 1.4 mg/dL (0.5-1.5); POTASSIUM 4.5 mmol/L (3.5-5.1)
[2023-04-24 12:28] LABS: ALBUMIN 2.6 g/dL (3.5-5.0); BILIRUBIN,TOTAL 0.3 mg/dL (0.2-1.0); TOTAL PROTEIN, SERUM 6.9 g/dL (6.0-8.3)
[2023-04-24] MEDS ORDERED: ACETAMINOPHEN 500 MG TABLET PO PRN (12:30)
[2023-04-24] MEDS ORDERED: ONDANSETRON 4MG INJ IVP PRN (12:30)
[2023-04-24] MEDS ORDERED: PHARMACY COMMUNICATION MISC SCH ×2 (13:00→13:30)
[2023-04-24 14:04] LABS: INR 1.25 (0.85-1.15); PROTHROMBIN TIME 14.3 SEC (9.6-11.6)
[2023-04-24 14:05] LABS: PARTIAL THROMBOPLASTIN TIME 33.6 SEC (26.3-35.5)
[2023-04-24 14:25] VITALS: BP 149/62; PULSE 81; RESP 19; O2SAT 98
[2023-04-24 14:32] LABS: RETICULOCYTE % (AUTO) 1.68 % (0.42-2.23)
[2023-04-24 14:36] LABS: % IRON SATURATION 6.4 % (30-44)
[2023-04-24 14:50] LABS: HEMOGLOBIN A1C 6.9 % (4.0-6.0)
[2023-04-24] MEDS ORDERED: TIGECYCLINE 100 MG in 0.9%NACL 100ML 100 ML IV ONE (15:00)
[2023-04-24] MEDS: 0.9%NACL 1000ML 1,000 ML IV SCH (15:49)
[2023-04-24] MEDS: INSULIN HUMULIN R 100 UNIT/ML 3ML SQ SCH ×2 (16:30→21:00)
[2023-04-24] MEDS ORDERED: LORA10TA7 PO (19:51)
[2023-04-24] MEDS ORDERED: INSU100I24 SQ (19:51)
[2023-04-24] MEDS ORDERED: AEC81 PO (19:51)
[2023-04-24] MEDS ORDERED: CLOP75TA32 PO (19:51)
[2023-04-24] MEDS ORDERED: HYDR-4153 PO (19:51)
[2023-04-24] MEDS ORDERED: HYDR25TA PO (19:51)
[2023-04-24] MEDS ORDERED: ZINC1CAP3 PO (19:51)
[2023-04-24] MEDS ORDERED: MIRT-22 PO (19:51)
[2023-04-24] MEDS ORDERED: INSU100V45 SQ (19:51)
[2023-04-24] MEDS ORDERED: MULT-1367 PO (19:51)
[2023-04-24] MEDS ORDERED: ASCO500T20 PO (19:51)
[2023-04-24] MEDS ORDERED: ATOR40TA71 PO (19:51)
[2023-04-24] MEDS ORDERED: LISI40TA9 PO (19:51)
[2023-04-24] MEDS ORDERED: PROT946L PO (19:51)
[2023-04-24 20:00] VITALS: BP 152/50; PULSE 75; RESP 18
[2023-04-24] MEDS: PANTOPRAZOLE 40 MG/VIAL IVP SCH (21:29)
[2023-04-24] MEDS: CEFAZOLIN SODIUM 2 GM VIAL IVPB SCH (21:35)
[2023-04-25] VITALS (28 sets, daily range): BP systolic 112–153; BP diastolic 57–108; PULSE 63–108; RESP 14–20; O2SAT 98
[2023-04-25] MEDS: TIGECYCLINE 50 MG in 0.9%NACL 100ML 100 ML IV SCH ×2 (02:10→15:45)
[2023-04-25] MEDS ORDERED: MAGNESIUM 2GM PREMIX 50ML 50 ML IV SCH (03:30)
[2023-04-25] MEDS: CEFAZOLIN SODIUM 2 GM VIAL IVPB SCH ×3 (04:42→20:57)
[2023-04-25 05:35] LABS: BASOPHILS # (AUTO) 0.05 K/uL (0.00-0.20); BASOPHILS % (AUTO) 0.8 % (0.0-5.0); EOSINOPHILS # (AUTO) 0.15 K/uL (0.00-0.70); EOSINOPHILS % (AUTO) 2.3 % (0.0-8.0); HEMATOCRIT 27.5 % (42-54); IMMATURE GRANULOCYTE ABSOLUTE 0.03 K/uL (0-1); LYMPHOCYTES % (AUTO) 30.5 % (21.0-51.0); MEAN CORPUSCULAR HEMOGLOBIN 28.4 pg (27.0-33.0); MEAN CORPUSCULAR HGB CONC 32.4 g/dL (32.0-36.0); MEAN CORPUSCULAR VOLUME 87.9 fL (79-99); MONOCYTES # (AUTO) 0.8 K/uL (0.1-1.0); MONOCYTES % (AUTO) 12.6 % (3.0-13.0); NEUTROPHILS # (AUTO) 3.5 K/uL (1.8-7.7); NEUTROPHILS % (AUTO) 53.3 % (40.0-77.0); PLATELET COUNT (AUTO) 342 K/uL (130-400); RED BLOOD CELL COUNT(AUTO) 3.13 MIL/uL (4.50-6.20); RED CELL DISTRIBUTION WIDTH 14.4 % (11.0-15.5); WHITE BLOOD COUNT (AUTO) 6.6 K/uL (4.8-10.8)
[2023-04-25 05:53] LABS: ALBUMIN 2.5 g/dL (3.5-5.0); BILIRUBIN,TOTAL 0.3 mg/dL (0.2-1.0); CREATININE 1.2 mg/dL (0.5-1.5); MAGNESIUM 1.9 mg/dL (1.80-2.40); POTASSIUM 4.5 mmol/L (3.5-5.1); TOTAL PROTEIN, SERUM 6.9 g/dL (6.0-8.3)
[2023-04-25] MEDS: INSULIN HUMULIN R 100 UNIT/ML 3ML SQ SCH ×4 (06:55→21:00)
[2023-04-25] MEDS: LISINOPRIL 40 MG TABLET PO SCH (09:00)
[2023-04-25] MEDS: ATORVASTATIN 40 MG TABLET PO SCH (09:00)
[2023-04-25] MEDS: LORATADINE 10 MG TABLET PO SCH (09:00)
[2023-04-25] MEDS: CLOPIDOGREL 75MG TAB PO SCH (09:00)
[2023-04-25] MEDS: HYDROCHLOROTHIAZIDE 25 MG TABLET PO SCH (09:00)
[2023-04-25] MEDS: ZINC SULFATE 220 CAPSULE PO SCH (09:00)
[2023-04-25] MEDS ORDERED: ASPIRIN 81 MG EC TAB PO SCH (09:00)
[2023-04-25] MEDS: MULTIVITAMIN TABLET PO SCH (09:00)
[2023-04-25] MEDS: ASCORBIC ACID 500 MG TAB PO SCH ×2 (09:00→20:57)
[2023-04-25] MEDS: ASPIRIN 81 MG EC TAB PO SCH (09:00)
[2023-04-25] MEDS: HYDRALAZINE 25MG TABLET PO SCH ×3 (09:00→20:57)
[2023-04-25] MEDS ORDERED: NON-FORMULARY MEDICATION 1 EACH (Multivitamin 1 EACH) PO SCH (09:00)
[2023-04-25] MEDS: 0.9%NACL 1000ML 1,000 ML IV SCH (09:39)
[2023-04-25] MEDS ORDERED: BUPIVACAINE/PF 0.5% 10ML VIAL ONE (10:26)
[2023-04-25] MEDS ORDERED: LIDOCAINE HCL 400MG/20ML VIAL ONE (10:26)
[2023-04-25] MEDS ORDERED: LIDOCAINE HCL-MPF 2% 10ML AMP IJ ONE (10:26)
[2023-04-25] MEDS ORDERED: MIDAZOLAM HCL 1 MG/ML 2ML VIAL ONE ×3 (10:32→13:42)
[2023-04-25] MEDS ORDERED: FENTANYL CITRATE PF 50 MCG/1 ML 2ML VIAL ONE (10:32)
[2023-04-25] MEDS: PANTOPRAZOLE 40 MG/VIAL IVP SCH (12:30)
[2023-04-25] MEDS ORDERED: DiphenhydrAMINE HCL 50 MG/ML VIAL ONE (13:02)
[2023-04-25] MEDS: MIRTAZAPINE 15 MG TABLET PO SCH (20:58)
[2023-04-26] MEDS: MORPHINE 2 MG SYG IVP PRN ×3 (02:35→12:22)
[2023-04-26] MEDS: TIGECYCLINE 50 MG in 0.9%NACL 100ML 100 ML IV SCH ×2 (02:36→14:54)
[2023-04-26] MEDS: 0.9%NACL 1000ML 1,000 ML IV SCH ×2 (03:57→22:29)
[2023-04-26 04:26] VITALS: BP 142/81; PULSE 101; RESP 18
[2023-04-26 04:28] LABS: BASOPHILS # (AUTO) 0.07 K/uL (0.00-0.20); BASOPHILS % (AUTO) 0.6 % (0.0-5.0); EOSINOPHILS # (AUTO) 0.03 K/uL (0.00-0.70); EOSINOPHILS % (AUTO) 0.3 % (0.0-8.0); HEMATOCRIT 25.5 % (42-54); IMMATURE GRANULOCYTE ABSOLUTE 0.04 K/uL (0-1); LYMPHOCYTES # (AUTO) 1.2 K/uL (1.0-4.8); LYMPHOCYTES % (AUTO) 10.3 % (21.0-51.0); MEAN CORPUSCULAR HEMOGLOBIN 27.4 pg (27.0-33.0); MEAN CORPUSCULAR HGB CONC 32.2 g/dL (32.0-36.0); MEAN CORPUSCULAR VOLUME 85.3 fL (79-99); MONOCYTES # (AUTO) 0.9 K/uL (0.1-1.0); MONOCYTES % (AUTO) 7.3 % (3.0-13.0); NEUTROPHILS # (AUTO) 9.6 K/uL (1.8-7.7); NEUTROPHILS % (AUTO) 81.2 % (40.0-77.0); PLATELET COUNT (AUTO) 395 K/uL (130-400); RED BLOOD CELL COUNT(AUTO) 2.99 MIL/uL (4.50-6.20); RED CELL DISTRIBUTION WIDTH 14.4 % (11.0-15.5); WHITE BLOOD COUNT (AUTO) 11.8 K/uL (4.8-10.8)
[2023-04-26 04:56] LABS: ALBUMIN 2.5 g/dL (3.5-5.0); BILIRUBIN,TOTAL 0.4 mg/dL (0.2-1.0); CREATININE 1.1 mg/dL (0.5-1.5); POTASSIUM 4.3 mmol/L (3.5-5.1); TOTAL PROTEIN, SERUM 6.8 g/dL (6.0-8.3)
[2023-04-26] MEDS: CEFAZOLIN SODIUM 2 GM VIAL IVPB SCH ×3 (05:18→22:22)
[2023-04-26] MEDS: INSULIN HUMULIN R 100 UNIT/ML 3ML SQ SCH ×4 (06:34→21:00)
[2023-04-26 08:00] VITALS: BP 142/61; PULSE 92; RESP 17; O2SAT 99
[2023-04-26] MEDS: CLOPIDOGREL 75MG TAB PO SCH (08:59)
[2023-04-26] MEDS: ZINC SULFATE 220 CAPSULE PO SCH (08:59)
[2023-04-26] MEDS: ASCORBIC ACID 500 MG TAB PO SCH ×2 (08:59→22:23)
[2023-04-26] MEDS: LISINOPRIL 40 MG TABLET PO SCH (08:59)
[2023-04-26] MEDS: ASPIRIN 81 MG EC TAB PO SCH (09:00)
[2023-04-26] MEDS: HYDROCHLOROTHIAZIDE 25 MG TABLET PO SCH (09:00)
[2023-04-26] MEDS: MULTIVITAMIN TABLET PO SCH (09:00)
[2023-04-26] MEDS: ATORVASTATIN 40 MG TABLET PO SCH (09:00)
[2023-04-26] MEDS: LORATADINE 10 MG TABLET PO SCH (09:00)
[2023-04-26] MEDS: HYDRALAZINE 25MG TABLET PO SCH ×3 (09:00→22:23)
[2023-04-26 12:00] VITALS: BP 137/73; PULSE 103; RESP 19
[2023-04-26] MEDS ORDERED: COMPOUND IV MISC 1 EACH IVSOLN MISC PRN (12:00)
[2023-04-26] MEDS: PANTOPRAZOLE 40 MG/VIAL IVP SCH (12:11)
[2023-04-26 16:00] VITALS: BP 109/57; PULSE 83; RESP 18
[2023-04-26 19:05] VITALS: O2SAT 99
[2023-04-26 20:00] VITALS: BP 132/60; PULSE 69; RESP 20
[2023-04-26] MEDS: MIRTAZAPINE 15 MG TABLET PO SCH (22:22)
[2023-04-27] VITALS (8 sets, daily range): BP systolic 96–147; BP diastolic 51–70; PULSE 62–100; RESP 17–20; O2SAT 97
[2023-04-27] MEDS: TIGECYCLINE 50 MG in 0.9%NACL 100ML 100 ML IV SCH ×2 (04:01→17:16)
[2023-04-27 05:12] LABS: BASOPHILS # (AUTO) 0.03 K/uL (0.00-0.20); BASOPHILS % (AUTO) 0.3 % (0.0-5.0); EOSINOPHILS # (AUTO) 0.15 K/uL (0.00-0.70); EOSINOPHILS % (AUTO) 1.5 % (0.0-8.0); HEMATOCRIT 23.6 % (42-54); IMMATURE GRANULOCYTE ABSOLUTE 0.06 K/uL (0-1); LYMPHOCYTES # (AUTO) 2.1 K/uL (1.0-4.8); LYMPHOCYTES % (AUTO) 21.6 % (21.0-51.0); MEAN CORPUSCULAR HEMOGLOBIN 27.9 pg (27.0-33.0); MEAN CORPUSCULAR HGB CONC 31.8 g/dL (32.0-36.0); MEAN CORPUSCULAR VOLUME 87.7 fL (79-99); MONOCYTES % (AUTO) 9.7 % (3.0-13.0); NEUTROPHILS # (AUTO) 6.5 K/uL (1.8-7.7); NEUTROPHILS % (AUTO) 66.3 % (40.0-77.0); PLATELET COUNT (AUTO) 342 K/uL (130-400); RED BLOOD CELL COUNT(AUTO) 2.69 MIL/uL (4.50-6.20); RED CELL DISTRIBUTION WIDTH 14.6 % (11.0-15.5); WHITE BLOOD COUNT (AUTO) 9.8 K/uL (4.8-10.8)
[2023-04-27 05:37] LABS: ALBUMIN 2.2 g/dL (3.5-5.0); BILIRUBIN,TOTAL 0.3 mg/dL (0.2-1.0); CREATININE 1.1 mg/dL (0.5-1.5); POTASSIUM 3.7 mmol/L (3.5-5.1); TOTAL PROTEIN, SERUM 6.1 g/dL (6.0-8.3)
[2023-04-27] MEDS: CEFAZOLIN SODIUM 2 GM VIAL IVPB SCH ×3 (06:05→20:53)
[2023-04-27] MEDS: INSULIN HUMULIN R 100 UNIT/ML 3ML SQ SCH ×4 (06:06→20:54)
[2023-04-27 06:42] LABS: ERYTHROCYTE SEDIMENTATION RATE 90 MM/HR (0-20)
[2023-04-27] MEDS: ASCORBIC ACID 500 MG TAB PO SCH ×2 (10:26→20:53)
[2023-04-27] MEDS: HYDROCHLOROTHIAZIDE 25 MG TABLET PO SCH (10:27)
[2023-04-27] MEDS: ATORVASTATIN 40 MG TABLET PO SCH (10:27)
[2023-04-27] MEDS: CLOPIDOGREL 75MG TAB PO SCH (10:27)
[2023-04-27] MEDS: LORATADINE 10 MG TABLET PO SCH (10:27)
[2023-04-27] MEDS: MULTIVITAMIN TABLET PO SCH (10:27)
[2023-04-27] MEDS: ASPIRIN 81 MG EC TAB PO SCH (10:27)
[2023-04-27] MEDS: HYDRALAZINE 25MG TABLET PO SCH ×3 (10:27→23:21)
[2023-04-27] MEDS: LISINOPRIL 40 MG TABLET PO SCH (10:27)
[2023-04-27] MEDS: ZINC SULFATE 220 CAPSULE PO SCH (10:29)
[2023-04-27] MEDS: PANTOPRAZOLE 40 MG/VIAL IVP SCH (12:47)
[2023-04-27 19:35] LABS: INR 1.25 (0.85-1.15); PROTHROMBIN TIME 14.3 SEC (9.6-11.6)
[2023-04-27 19:36] LABS: PARTIAL THROMBOPLASTIN TIME 36.7 SEC (26.3-35.5)
[2023-04-27] MEDS: MIRTAZAPINE 15 MG TABLET PO SCH (20:53)
[2023-04-27] MEDS: 0.9%NACL 1000ML 1,000 ML IV SCH (20:54)
[2023-04-28] MEDS: TIGECYCLINE 50 MG in 0.9%NACL 100ML 100 ML IV SCH ×2 (03:17→17:03)
[2023-04-28 04:00] VITALS: BP 130/42; PULSE 67; RESP 19
[2023-04-28 04:07] LABS: BASOPHILS # (AUTO) 0.03 K/uL (0.00-0.20); BASOPHILS % (AUTO) 0.3 % (0.0-5.0); EOSINOPHILS # (AUTO) 0.11 K/uL (0.00-0.70); EOSINOPHILS % (AUTO) 1.3 % (0.0-8.0); HEMATOCRIT 23.1 % (42-54); IMMATURE GRANULOCYTE ABSOLUTE 0.05 K/uL (0-1); LYMPHOCYTES # (AUTO) 1.8 K/uL (1.0-4.8); LYMPHOCYTES % (AUTO) 20.3 % (21.0-51.0); MEAN CORPUSCULAR HEMOGLOBIN 28.2 pg (27.0-33.0); MEAN CORPUSCULAR HGB CONC 33.3 g/dL (32.0-36.0); MEAN CORPUSCULAR VOLUME 84.6 fL (79-99); MONOCYTES # (AUTO) 0.8 K/uL (0.1-1.0); MONOCYTES % (AUTO) 9.4 % (3.0-13.0); NEUTROPHILS % (AUTO) 68.1 % (40.0-77.0); PLATELET COUNT (AUTO) 359 K/uL (130-400); RED BLOOD CELL COUNT(AUTO) 2.73 MIL/uL (4.50-6.20); RED CELL DISTRIBUTION WIDTH 14.6 % (11.0-15.5); WHITE BLOOD COUNT (AUTO) 8.8 K/uL (4.8-10.8)
[2023-04-28 04:22] LABS: ALBUMIN 2.1 g/dL (3.5-5.0); BILIRUBIN,TOTAL 0.3 mg/dL (0.2-1.0); CREATININE 0.9 mg/dL (0.5-1.5); POTASSIUM 3.7 mmol/L (3.5-5.1); TOTAL PROTEIN, SERUM 6.1 g/dL (6.0-8.3)
[2023-04-28] MEDS: CEFAZOLIN SODIUM 2 GM VIAL IVPB SCH ×2 (05:36→13:04)
[2023-04-28] MEDS: INSULIN HUMULIN R 100 UNIT/ML 3ML SQ SCH ×3 (06:18→16:28)
[2023-04-28 07:50] VITALS: O2SAT 100
[2023-04-28 08:00] VITALS: BP 155/68; PULSE 75; RESP 19
[2023-04-28] MEDS: HYDROCHLOROTHIAZIDE 25 MG TABLET PO SCH (08:43)
[2023-04-28] MEDS: LORATADINE 10 MG TABLET PO SCH (08:43)
[2023-04-28] MEDS: ATORVASTATIN 40 MG TABLET PO SCH (08:43)
[2023-04-28] MEDS: LISINOPRIL 40 MG TABLET PO SCH (08:43)
[2023-04-28] MEDS: ASPIRIN 81 MG EC TAB PO SCH (08:43)
[2023-04-28] MEDS: ZINC SULFATE 220 CAPSULE PO SCH (08:43)
[2023-04-28] MEDS: ASCORBIC ACID 500 MG TAB PO SCH (08:44)
[2023-04-28] MEDS: HYDRALAZINE 25MG TABLET PO SCH ×2 (08:44→13:04)
[2023-04-28] MEDS: CLOPIDOGREL 75MG TAB PO SCH (08:44)
[2023-04-28] MEDS: MULTIVITAMIN TABLET PO SCH (08:44)
[2023-04-28 12:00] VITALS: BP 146/85; PULSE 69; RESP 19
[2023-04-28] MEDS: PANTOPRAZOLE 40 MG/VIAL IVP SCH (13:04)
[2023-04-28 16:00] VITALS: BP 137/94; PULSE 72; RESP 17
[2023-04-28] MEDS: 0.9%NACL 1000ML 1,000 ML IV SCH (17:04)
[2023-05-18] MEDS ORDERED: IRON SUCROSE COMPLEX 300 MG in 0.9% NACL 250ML 250 ML IV SCH (21:00)
== END 2023-04-28 19:45 | disposition home or self-care (01) | DRG 240 ==
LOC: EDH 10:58 → DIRECT 10:59 → 4AH 14:25
PROVIDERS: ADMIT Hospitalist; ATTEND Hospitalist
PROC: 0Y6M0ZB Detachment at Right Foot, Partial 2nd Ray, Open Approach (ICD-10-PCS; 2023-04-25)
PROC: 0Y6M0ZC Detachment at Right Foot, Partial 3rd Ray, Open Approach (ICD-10-PCS; 2023-04-25)
PROC: 0Y6M0ZD Detachment at Right Foot, Partial 4th Ray, Open Approach (ICD-10-PCS; 2023-04-25)
PROC: 0Y6M0ZF Detachment at Right Foot, Partial 5th Ray, Open Approach (ICD-10-PCS; 2023-04-25)
PROC: 0Y6M0Z9 Detachment at Right Foot, Partial 1st Ray, Open Approach (ICD-10-PCS; principal; 2023-04-25 12:39)
PROC: 02HV33Z Insertion of Infusion Device into Superior Vena Cava, Percutaneous Approach (ICD-10-PCS; 2023-04-28)
PROC: B548ZZA Ultrasonography of Superior Vena Cava, Guidance (ICD-10-PCS; 2023-04-28)
DX: E11.52 Type 2 diabetes mellitus with diabetic peripheral angiopathy with gangrene (principal); E87.1 Hypo-osmolality and hyponatremia; L02.611 Cutaneous abscess of right foot; M86.171 Other acute osteomyelitis, right ankle and foot; L03.115 Cellulitis of right lower limb; M00.871 Arthritis due to other bacteria, right ankle and foot; Z16.13 Resistance to carbapenem; Z16.24 Resistance to multiple antibiotics; E11.69 Type 2 diabetes mellitus with other specified complication; E11.621 Type 2 diabetes mellitus with foot ulcer; L97.519 Non-pressure chronic ulcer of other part of right foot with unspecified severity; D64.9 Anemia, unspecified; T87.81 Dehiscence of amputation stump; B95.2 Enterococcus as the cause of diseases classified elsewhere; E78.5 Hyperlipidemia, unspecified; I10 Essential (primary) hypertension; N28.9 Disorder of kidney and ureter, unspecified; Z83.3 Family history of diabetes mellitus; Z86.19 Personal history of other infectious and parasitic diseases; Z89.431 Acquired absence of right foot
CPT/HCPCS: 36415; 71045; 73630; 73718; 80053; 82607; 82728; 82746; 82948; 83036; 83540; 83550; 83735; 84145; 84443; 85025; 85027; 85045; 85610; 85651; 85730; 86140; 86850; 86900; 86901; 87040; 87070; 87076; 87077; 87186; 87205; 88304; 88311; 93005; 93926; 93970; C9113; G0378; J1200; J1815; J2250; J2270; J3010; J3243; J3490; J7030; A4222; A4223; A4649; A4930; A6446; C1729; J0665; J0690

== ENCOUNTER 2024-01-18 13:46 | Emergency (ER) | payer OTHER ==
[~2024-01-18] VITALS: Ht 177.8 cm; Wt 79.4 kg
[~2024-01-18 13:46] MED LIST changes: +AMLO-257 PO; +ASCO500C18 PO; +ASPI-1197 PO; +ATOR40TA69 PO; +CLOP75TA32 PO; +HYDR25TA67 PO; +INSU100I24 SQ; +INSU100V3 IJ; +LISI40TA9 PO; +MIRT-22 PO; +MULT-1367 PO; +PROT946L PO; +ZINC220C6 PO
[2024-01-18 14:30] VITALS: BP 154/59; PULSE 66; RESP 14; O2SAT 99
== END 2024-01-18 14:49 | disposition home or self-care (01) ==
LOC: EDH 13:46
DX: E11.621 Type 2 diabetes mellitus with foot ulcer (principal); L97.529 Non-pressure chronic ulcer of other part of left foot with unspecified severity; E78.00 Pure hypercholesterolemia, unspecified; F32.A Depression, unspecified; I11.0 Hypertensive heart disease with heart failure; I50.9 Heart failure, unspecified; Z79.4 Long term (current) use of insulin; Z79.82 Long term (current) use of aspirin; Z79.899 Other long term (current) drug therapy; Z98.890 Other specified postprocedural states